=== PATIENT | male | born 1985 | race Caucasian/White ===

== ENCOUNTER 2017-01-18 15:12 | Emergency (ER) | payer MEDICAID, OTHER ==
[2017-01-18 15:24] VITALS: BMI 31.9
[2017-01-18 15:28] VITALS: BP 134/66; PULSE 70; RESP 18; TEMP 97.7; O2SAT 95
--- NOTE | 2017-01-18 15:45 | C.PDOC ---
History Of Present Illness 31 y/o male c/o crusting to left eye and difficulty opening eye from this morning, with watery discharge, with no blurred vision,no eye pain. no fever. does not wear glasses or contact lenses. Time Seen by Provider: 01/18/17 15:28 Chief Complaint (Nursing): ENT Problem Past Medical History Reviewed: Historical Data, Nursing Documentation, Vital Signs Vital Signs: Last Vital Signs Temp 97.7 F 01/18/17 15:23 Pulse 70 01/18/17 15:23 Resp 18 01/18/17 15:23 BP 134/66 01/18/17 15:23 Pulse Ox 95 01/18/17 15:49 - Medical History PMH: Asthma Surgical History: No Surg Hx Family History: States: Unknown Family Hx - Social History Hx Tobacco Use: No Hx Alcohol Use: No Hx Substance Use: No - Immunization History Hx Tetanus Toxoid Vaccination: No Hx Influenza Vaccination: No Hx Pneumococcal Vaccination: No Review Of Systems Constitutional: Negative for: Fever, Chills Eyes: Positive for: Conjunctivae Inflammation, Eyelid Inflammation, Redness. Negative for: Vision Change Respiratory: Negative for: Cough Physical Exam - Physical Exam Appears: Non-toxic, No Acute Distress Skin: Normal Color, Warm, Dry Head: Atraumatic, Normacephalic Eye(s): bilateral: PERRL, EOMI, left: Eyelid Inflammation, Other (diffuse conjunctival injection, no discharge noted) ED Course And Treatment O2 Sat by Pulse Oximetry: 95 Disposition Counseled Patient/Family Regarding: Diagnosis, Need For Followup, Rx Given - Disposition Referrals: [facility] [Outside] [facility] [Outside] Disposition: HOME/ ROUTINE Disposition Time: 15:45 Condition: STABLE Additional Instructions: Do not share towels with anyone. Use 1-2 drops every 4 hours in left eye. Follow up in Medical clinic. Return to ER for any worsening symptoms. Prescriptions: Sulfacetamide Sodium [Bleph-10 5ml] 1 drop OS Q4 #1 bottle Instructions: Conjunctivitis (ED) - Clinical Impression Clinical Impression: Conjunctivitis, left eye
== END 2017-01-18 15:50 | disposition home or self-care (01) ==
LOC: C.ER 15:12
DX: H10.9 Unspecified conjunctivitis (principal)

== ENCOUNTER 2017-10-18 20:53 | Emergency (ER) | payer SELFPAY ==
[2017-10-18 20:53] VITALS: BMI 31.9
[2017-10-18 20:59] VITALS: BP 128/77; PULSE 77; TEMP 98.3; O2SAT 98
[2017-10-18] MEDS ORDERED: cefTRIAXone (Rocephin) 250 mg Inj IM STA (21:06)
--- NOTE | 2017-10-18 21:14 | C.PDOC ---
History Of Present Illness 32yo male presents to ED for evaluation of dysuria with yellow discharge for the past 5 days. Patient states he took OTC Azo with minimal relief. He denies any associated abdominal pain or testicular pain. He has no other complaints. Time Seen by Provider: 10/18/17 21:01 Chief Complaint (Nursing): Male Genitourinary History Per: Patient History/Exam Limitations: no limitations Onset/Duration Of Symptoms: Days (5) Current Symptoms Are (Timing): Still Present Associated Symptoms: Urinary Symptoms (dysuria) Past Medical History Reviewed: Historical Data, Nursing Documentation, Vital Signs Vital Signs: Last Vital Signs Temp 98.3 F 10/18/17 20:57 Pulse 77 10/18/17 20:57 Resp 20 10/18/17 21:42 BP 128/77 10/18/17 20:57 Pulse Ox 98 10/18/17 21:43 - Medical History PMH: Asthma Surgical History: No Surg Hx Family History: States: Unknown Family Hx - Social History Hx Tobacco Use: No Hx Alcohol Use: Yes Hx Substance Use: No - Immunization History Hx Tetanus Toxoid Vaccination: No Hx Influenza Vaccination: No Hx Pneumococcal Vaccination: No Review Of Systems Except As Marked, All Systems Reviewed And Found Negative. Constitutional: Negative for: Fever, Chills Gastrointestinal: Negative for: Abdominal Pain Genitourinary: Positive for: Dysuria, Penile Discharge (yellow). Negative for: Scrotal Pain, Penile Pain Physical Exam - Physical Exam Appears: Non-toxic, No Acute Distress Skin: Normal Color Head: Atraumatic, Normacephalic Eye(s): bilateral: Normal Inspection Neck: Supple Cardiovascular: Rhythm Regular Respiratory: Normal Breath Sounds Gastrointestinal/Abdominal: Bowel Sounds, Soft, No Tenderness Male Genital: No Testicular Swelling, No Inguinal Swelling, No Scrotal Swelling , Circumcised, Other (yellow discharge and erythema to urethra noted. no rashes) Extremity: Bilateral: Atraumatic, Normal ROM Neurological/Psych: Oriented x3, Normal Speech Gait: Steady Additional Physical Exam Comments: Genital exam performed with MERLINE Siegel as combination technician. ED Course And Treatment O2 Sat by Pulse Oximetry: 98 (RA) Pulse Ox Interpretation: Normal Medical Decision Making Medical Decision Making: Impression: Dysuria and yellow penile discharge Plan: -- Chlamydia/GC RNA, TMA -- Zithromax 1000 mg PO -- Rocephin 250 mg IM -- Urine culture -- Urinalysis +nitrates on urine. Patient remained well without fever and no distress. discussed lab result and plan for discharge with oral antibiotics. Explain GC culture was sent and will take few days for result, will call patient with any positive findings. Advise follow up with urologist Disposition Counseled Patient/Family Regarding: Diagnosis, Need For Followup, Rx Given - Disposition Referrals: Jillian Ma MD [Staff Provider] - Disposition: HOME/ ROUTINE Disposition Time: 21:30 Condition: STABLE Additional Instructions: Please follow up with urologist for further evaluation Take antibiotic twice daily Drink plenty of water to flush out infection, can also take cranberry extract Urine and STI cultures were sent to lab and will take 2-3 days for result Prescriptions: Ciprofloxacin HCl [Cipro] 500 mg PO BID #14 tab Instructions: Nonspecific Urethritis in Men (ED), Urinary Tract Infection in Men (ED) Forms: [facility] ??? Connect (Cymro) - POA Present On Arrival: None - Clinical Impression Clinical Impression: Urinary tract infection, Urethritis - PA / TRACK SUBWAY REPAIR SUPERVISOR / Resident Statement MD/DO has reviewed & agrees with the documentation as recorded. - Scribe Statement The provider has reviewed the documentation as recorded by the Katie Ford Provider scribe attestation: All medical record entries made by the Katie were at my direction and personally dictated by me. I have reviewed the chart and agree that the record accurately reflects my personal performance of the history, physical exam, medical decision making, and the department course for this patient. I have also personally directed, reviewed, and agree with the discharge instructions and disposition.
[2017-10-18 21:30] LABS: SQUAMOUS EPITHIAL 1 /hpf (0-5); URINE BACTERIA FEW (<OCC); URINE BILIRUBIN NEGATIVE (NEGATIVE); URINE BLOOD 3+ (NEGATIVE); URINE CLARITY Clear (Clear); URINE COLOR Amber (YELLOW); URINE GLUCOSE (UA) NORMAL (Normal); URINE LEUKOCYTE ESTERASE 3+ Leu/uL (Negative); URINE NITRATE POSITIVE (NEGATIVE); URINE PROTEIN 1+ mg/dL (NEGATIVE)
[2017-10-18 21:43] VITALS: RESP 20
== END 2017-10-18 21:42 | disposition home or self-care (01) ==
LOC: C.ER 20:53
DX: N34.2 Other urethritis (principal)
CPT/HCPCS: 81001; 87086; 87206; 87491; 87591; 96372; 99284; J0696

== ENCOUNTER 2017-11-07 11:09 | Emergency (ER) | payer SELFPAY ==
[2017-11-07 11:09] VITALS: BMI 31.9
--- NOTE | 2017-11-07 11:56 | C.PDOC ---
History Of Present Illness 32 year old male presents to the ED for evaluation of a possible penile obstruction, stating the head of his penis has been swollen since last night. Patient states onset was after sex, states "hole is swollen." Denies hematuria. Patient was seen on 10/18 for UTI and discharged in Cipro. Patient states he followed up with 1-2 weeks ago, was advised to continue Cipro for 1 month. Negative GC 10/18. Patient has been better since taking antibiotics. Denies bladder pain, fullness or other associated symptoms. POSSIBLE PENILE OBSTRUCTION, HEAD OF PENIS SWELLING SINCE LAST NIGHT. ONSET AFTER SEX, STATES "HOLE IS SWOLLEN". NO HEMATURIA. SEEN ON 10/18 FOR UTI, DC ON CIPRO. PS FU W 1-2 WEEKS AGO, WAS ADVISED TO CONTINUE ON CIPRO FOR 1 MONTH. NEG GC 10/18. PS HAS BEEN BETTER SINCE TAKING ABX. DENIES BLADDER PAIN, FULLNESS , OTHER ASSOC SX. EXAM NAD UNCIRCUMSCISED. URETHRAL OPENING CLOSED, UNABLE TO DILATE DURING GLAN MANIUPULATION. NO EDEMA, REDNESS, LESIONS REMAINDER NEG MDM UCX RESULT 10/18 REVIEWED. Time Seen by Provider: 11/07/17 11:53 Chief Complaint (Nursing): Male Genitourinary History Per: Patient History/Exam Limitations: no limitations Onset/Duration Of Symptoms: Hrs Current Symptoms Are (Timing): Still Present Quality Of Discomfort: denies: "Pain" Additional History Per: Patient Past Medical History Reviewed: Historical Data, Nursing Documentation, Vital Signs Vital Signs: Last Vital Signs Temp 97.8 F 11/07/17 13:59 Pulse 66 11/07/17 13:59 Resp 16 11/07/17 13:59 BP 119/73 11/07/17 13:59 Pulse Ox 99 11/07/17 13:59 - Medical History PMH: Asthma Surgical History: No Surg Hx Family History: States: Unknown Family Hx - Social History Hx Tobacco Use: No Hx Alcohol Use: No Hx Substance Use: No - Immunization History Hx Tetanus Toxoid Vaccination: No Hx Influenza Vaccination: No Hx Pneumococcal Vaccination: No Review Of Systems Genitourinary: Positive for: Other (possible penile obstruction, swelling to head of penis. denies bladder pain/fullness ) Physical Exam - Physical Exam Appears: Non-toxic, No Acute Distress Skin: Normal Color, Warm, Dry Male Genital: No Circumcised, Other (urethral opening closed. unable to dilate during glan manipulation. no edema, redness or lesions ) Neurological/Psych: Normal Speech, Normal Cognition ED Course And Treatment O2 Sat by Pulse Oximetry: 99 (on RA) Pulse Ox Interpretation: Normal Progress Note: UA ordered and reviewed. Progress - Re-Evaluation Re-evaluation Note: 11/07/17 12:47 BLADDER SCAN <50 CC PROCEDURE: GC QTIP INSERTED INTO URETHRA WO DIFFICULTY. +SCAN URINE OUTPUT. NO BLEEDING. PT TOLERATED WELL 11/07/17 13:50 +UO WO DIFF, IMPROVED FROM INITIAL. ADVISED NEED FOR ABX CHANGE. FU 11/07/17 13:52 FAX FROM OUTPT UCX DONE ON 10/31 REVIEWED. +SENSITIVE TO BACTRIM PER FAX. - Data Reviewed Data Reviewed: Lab, Old records Medical Decision Making Medical Decision Making: [facility] UCX RESULT 10/18 REVIEWED. Disposition Counseled Patient/Family Regarding: Studies Performed, Diagnosis, Need For Followup, Rx Given - Disposition Referrals: YOUR,UROLOGIST [Other] Disposition: HOME/ ROUTINE Disposition Time: 13:50 Condition: IMPROVED Prescriptions: Sulfamethoxazole/Trimethoprim [Bactrim DS 800 mg-160 mg] 1 tab PO BID #60 tab Instructions: Urinary Tract Infection in Men (ED) Forms: [facility] (Scottish), Work Excuse - Clinical Impression Clinical Impression: Urethral obstruction, Urinary tract infection - Scribe Statement The provider has reviewed the documentation as recorded by the Scribe (Porsche He) Provider Attestation: All medical record entries made by the Scribe were at my direction and personally dictated by me. I have reviewed the chart and agree that the record accurately reflects my personal performance of the history, physical exam, medical decision making, and the department course for this patient. I have also personally directed, reviewed, and agree with the discharge instructions and disposition.
[2017-11-07 13:42] LABS: SQUAMOUS EPITHIAL 2 /hpf (0-5); URINE BACTERIA RARE (<OCC); URINE BILIRUBIN NEGATIVE (NEGATIVE); URINE BLOOD NEGATIVE (NEGATIVE); URINE CLARITY Hazy (Clear); URINE COLOR Yellow (YELLOW); URINE GLUCOSE (UA) NORMAL (Normal); URINE LEUKOCYTE ESTERASE 1+ Leu/uL (Negative); URINE NITRATE NEGATIVE (NEGATIVE); URINE PROTEIN 1+ mg/dL (NEGATIVE)
[2017-11-07 14:00] VITALS: BP 119/73; PULSE 66; RESP 16; TEMP 97.8; O2SAT 99
== END 2017-11-07 13:59 | disposition home or self-care (01) ==
LOC: C.ER 11:09
DX: N36.8 Other specified disorders of urethra (principal); N39.0 Urinary tract infection, site not specified

== ENCOUNTER 2018-09-13 10:31 | Emergency (ER) | payer MEDICAID, OTHER ==
[2018-09-13 10:32] VITALS: BMI 31.9
[2018-09-13 10:40] VITALS: BP 142/76; PULSE 74; RESP 19; TEMP 98.4; O2SAT 97
--- NOTE | 2018-09-13 10:57 | C.PDOC ---
Time Seen by Provider: 09/13/18 10:43 Chief Complaint (Nursing): Male Genitourinary Past Medical History Vital Signs: Last Vital Signs Temp 98.4 F 09/13/18 10:37 Pulse 74 09/13/18 10:37 Resp 19 09/13/18 10:37 BP 142/76 09/13/18 10:37 Pulse Ox 97 09/13/18 10:37 - Medical History PMH: Asthma Family History: States: Unknown Family Hx - Social History Hx Tobacco Use: No Hx Alcohol Use: Yes Hx Substance Use: No - Immunization History Hx Tetanus Toxoid Vaccination: No Hx Influenza Vaccination: No Hx Pneumococcal Vaccination: No ED Course And Treatment O2 Sat by Pulse Oximetry: 97 Disposition - Disposition
[2018-09-13 11:22] LABS: SQUAMOUS EPITHIAL 1 /hpf (0-5); URINE BILIRUBIN NEGATIVE (NEGATIVE); URINE BLOOD 1+ (NEGATIVE); URINE CLARITY Hazy (Clear); URINE COLOR Yellow (YELLOW); URINE GLUCOSE (UA) NORMAL (Normal); URINE LEUKOCYTE ESTERASE 3+ Leu/uL (Negative); URINE PROTEIN NEGATIVE (NEGATIVE); URINE UROBILINOGEN NORMAL mg/dL (0.2-1.0)
[2018-09-13 11:28] LABS: URINE BACTERIA OCC (<OCC)
[2018-09-13] MEDS ORDERED: cefTRIAXone (Rocephin) 250 mg Inj IM STA (12:39)
--- NOTE | 2018-09-13 13:09 | C.PDOC ---
History Of Present Illness 33 y/o male presents to the ED complaining of hematuria and penile discharge for the past 3 days. Patient denies any abdominal pain, contrary to triage. He also denies associated fever, nausea, vomiting, diarrhea, or dysuria. States he has not noticed any penile lesions. Patient does report having unprotected sex, and is concerned for STDs. Time Seen by Provider: 09/13/18 10:43 Chief Complaint (Nursing): Male Genitourinary History Per: Patient History/Exam Limitations: no limitations Onset/Duration Of Symptoms: Days Current Symptoms Are (Timing): Still Present Past Medical History Reviewed: Historical Data, Nursing Documentation, Vital Signs Vital Signs: Last Vital Signs Temp 98.4 F 09/13/18 10:37 Pulse 74 09/13/18 10:37 Resp 19 09/13/18 10:37 BP 142/76 09/13/18 10:37 Pulse Ox 97 09/13/18 12:22 - Medical History PMH: Asthma Family History: States: Unknown Family Hx - Social History Hx Tobacco Use: No Hx Alcohol Use: Yes Hx Substance Use: No - Immunization History Hx Tetanus Toxoid Vaccination: No Hx Influenza Vaccination: No Hx Pneumococcal Vaccination: No Review Of Systems Constitutional: Negative for: Fever, Chills Gastrointestinal: Negative for: Nausea, Vomiting, Abdominal Pain, Diarrhea Genitourinary: Positive for: Hematuria, Penile Discharge. Negative for: Dysuria, Rash Neurological: Negative for: Weakness, Numbness Physical Exam - Physical Exam Appears: Non-toxic, No Acute Distress Skin: Warm, Dry Head: Atraumatic, Normacephalic Eye(s): bilateral: Normal Inspection, PERRL, EOMI Oral Mucosa: Moist Neck: Normal ROM Chest: Symmetrical Cardiovascular: Rhythm Regular, No Murmur Respiratory: Normal Breath Sounds, No Accessory Muscle Use Gastrointestinal/Abdominal: Soft, No Tenderness, No Distention Male Genital: No Testicular Tenderness, No Testicular Swelling, Other (small amount of light yellow discharge from penis, no penile lesions or ulcers) Extremity: Bilateral: Atraumatic, Normal ROM Neurological/Psych: Oriented x3, Normal Speech ED Course And Treatment O2 Sat by Pulse Oximetry: 97 (RA) Pulse Ox Interpretation: Normal Medical Decision Making Medical Decision Making: Impression: Penile discharge, hematuria Plan: --UA --Urine culture --Rocephin 250 mg IM --Zithromax 1000mg PO --GC/chlamydia sent Patient is medically stable for discharge. UA shows UTI, will treat with PO macrobid. Advised to call for GC results and follow up with PMD. Disposition - Disposition Disposition: HOME/ ROUTINE Disposition Time: 13:00 Condition: STABLE Additional Instructions: DOMINGA ANGELO, thank you for letting us take care of you today. Your provider was Louann Verde MD and you were treated for PAIN WHILE URINATING. The emergency medical care you received today was directed at your acute symptoms. If you were prescribed any medication, please fill it and take as directed. It may take several days for your symptoms to resolve. Return to the Emergency Department if your symptoms worsen, do not improve, or if you have any other problems. Please contact your doctor or call one of the physicians/clinics you have been referred to that are listed on the Patient Visit Information form that is included in your discharge packet. Bring any paperwork you were given at discharge with you along with any medications you are taking to your follow up visit. Our treatment cannot replace ongoing medical care by a primary care provider outside of the emergency department. Thank you for allowing the [facility] team to be part of your care today. If you had an X-Ray or CT scan: A Radiologist will review the ED reading if any change in treatment is needed we will contact you. If you had a blood, urine, or wound culture: It will take several days for the results, if any change in treatment is needed we will contact you. If you had an STI test: It will take 48 hours for the results. Please call after 1 week if you have not heard back. Prescriptions: Nitrofurantoin Macrocrystals [Macrobid] 100 mg PO BID #14 cap Instructions: Urinary Tract Infection, Adult (DC), Screening for Sexually Transmitted Infections Forms: [employer] (Wolof) - Clinical Impression Clinical Impression: UTI (urinary tract infection), Concern about STD in male without diagnosis - Scribe Statement The provider has reviewed the documentation as recorded by the Katie Guillermo Provider Attestation: All medical record entries made by the Jeanetteibjennifer were at my direction and personally dictated by me. I have reviewed the chart and agree that the record accurately reflects my personal performance of the history, physical exam, medical decision making, and the department course for this patient. I have also personally directed, reviewed, and agree with the discharge instructions and disposition.
== END 2018-09-13 13:22 | disposition home or self-care (01) ==
LOC: C.ER 10:31
DX: N39.0 Urinary tract infection, site not specified (principal)
CPT/HCPCS: 81001; 87086; 87491; 87591; 96372; 99284; J0696

== ENCOUNTER 2018-10-04 18:24 | Emergency (ER) | payer MEDICAID ==
[2018-10-04 18:25] VITALS: BMI 31.9
[2018-10-04 18:59] VITALS: O2SAT 98
--- NOTE | 2018-10-04 20:29 | C.PDOC ---
History Of Present Illness 33 y/o male presents to the ER complaining of dysuria and hematuria which has been present for the past 2 days. Patient states that he was evalauted in [facility] ER on 09/13/18. At the time, he was diagnosed with GC/Chlamydia and he was treated. He was given prescription for Macrobid based on UA results which he did not fill out.Denies having penile lesions, abdominal pain, fever, and chills. Time Seen by Provider: 10/04/18 19:17 Chief Complaint (Nursing): Male Genitourinary History Per: Patient History/Exam Limitations: no limitations Onset/Duration Of Symptoms: Days Current Symptoms Are (Timing): Still Present Severity: Moderate Past Medical History Reviewed: Historical Data, Nursing Documentation, Vital Signs Vital Signs: Last Vital Signs Temp 98.3 F 10/04/18 18:56 Pulse 68 10/04/18 18:56 Resp 18 10/04/18 18:56 BP 115/68 10/04/18 18:56 Pulse Ox 98 10/04/18 18:56 - Medical History PMH: Asthma Other Surgeries: Hx of surgeries Family History: States: No Known Family Hx - Social History Hx Tobacco Use: No Hx Alcohol Use: Yes Hx Substance Use: No - Immunization History Hx Tetanus Toxoid Vaccination: No Hx Influenza Vaccination: No Hx Pneumococcal Vaccination: No Review Of Systems Except As Marked, All Systems Reviewed And Found Negative. Constitutional: Negative for: Fever, Chills Gastrointestinal: Negative for: Abdominal Pain Genitourinary: Positive for: Dysuria, Hematuria Physical Exam - Physical Exam Appears: Non-toxic, No Acute Distress Skin: Normal Color, Warm, Dry Head: Atraumatic, Normacephalic Eye(s): bilateral: Normal Inspection Nose: Normal Oral Mucosa: Moist Neck: Supple Chest: Symmetrical Cardiovascular: Rhythm Regular Respiratory: Normal Breath Sounds Gastrointestinal/Abdominal: Soft, No Tenderness Male Genital: Other (patient refused) Neurological/Psych: Oriented x3 ED Course And Treatment O2 Sat by Pulse Oximetry: 98 (RA) Pulse Ox Interpretation: Normal Progress Note: UA ordered and reviewed. Patient has been instructed about safe sex practice. Patient has been discharged and instructed to follow up in clinic. Disposition Counseled Patient/Family Regarding: Diagnosis, Need For Followup - Disposition Disposition: HOME/ ROUTINE Disposition Time: 20:29 Condition: STABLE Additional Instructions: Use condoms - Practice safe sex Follow up in clinic'' Return to ER if worse Prescriptions: Ciprofloxacin [Cipro] 1 tab PO BID #14 tab Instructions: Urinary Tract Infections in Adults, Safe Sex (ED) Forms: [employer] (Kiswahili) - Clinical Impression Clinical Impression: Sexually transmitted disease (STD), UTI (urinary tract infection) - PA / TUBE TEST TECHNICIAN / Resident Statement MD/DO has reviewed & agrees with the documentation as recorded. - Scribe Statement The provider has reviewed the documentation as recorded by the Scribe Bret Jules Provider Attestation All medical record entries made by the Jeanetteibjennifer were at my direction and personally dictated by me. I have reviewed the chart and agree that the record accurately reflects my personal performance of the history, physical exam, medical decision making, and the department course for this patient. I have also personally directed, reviewed, and agree with the discharge instructions and disposition.
[2018-10-04 20:37] VITALS: BP 110/60; PULSE 70; RESP 14; TEMP 98
[2018-10-04 20:40] LABS: SQUAMOUS EPITHIAL 2 /hpf (0-5); URINE BACTERIA FEW (<OCC); URINE BILIRUBIN NEGATIVE (NEGATIVE); URINE BLOOD 2+ (NEGATIVE); URINE CLARITY Hazy (Clear); URINE COLOR Yellow (YELLOW); URINE GLUCOSE (UA) NORMAL (Normal); URINE LEUKOCYTE ESTERASE 2+ Leu/uL (Negative); URINE PROTEIN 1+ mg/dL (NEGATIVE); URINE UROBILINOGEN NORMAL mg/dL (0.2-1.0)
== END 2018-10-04 20:37 | disposition home or self-care (01) ==
LOC: C.ER 18:24
DX: N39.0 Urinary tract infection, site not specified (principal); A64 Unspecified sexually transmitted disease

== ENCOUNTER 2019-01-11 20:58 | Emergency (ER) | payer MEDICAID ==
[2019-01-11 20:58] VITALS: BMI 29.6
[2019-01-11 21:04] VITALS: TEMP 97.6
--- NOTE | 2019-01-11 21:14 | C.PDOC ---
History Of Present Illness Patient presents to the ED c/o LUQ abdominal pain that started after eating and smoking marijuana today. Patient states his pain is sharp, stabbing. Patient denies fever, chills, nausea, vomit, diarrhea, dysuria, rash. Time Seen by Provider: 01/11/19 21:14 Chief Complaint (Nursing): Abdominal Pain History Per: Patient History/Exam Limitations: no limitations Onset/Duration Of Symptoms: Hrs Current Symptoms Are (Timing): Still Present Context: Food Location Of Pain/Discomfort: LUQ Radiation Of Pain To:: None Quality Of Discomfort: Sharp, Stabbing Associated Symptoms: denies: Nausea, Vomiting, Diarrhea, Urinary Symptoms Recent travel outside of the [place]: No Additional History Per: Patient Past Medical History Reviewed: Historical Data, Nursing Documentation, Vital Signs Vital Signs: Last Vital Signs Temp 97.6 F 01/11/19 21:01 Pulse 78 01/11/19 21:01 Resp 20 01/11/19 21:01 BP 116/70 01/11/19 21:01 Pulse Ox 100 01/11/19 21:01 - Medical History PMH: Asthma (denies on 10/09/2018), Sexually Transmitted Disease Denies: Chronic Kidney Disease Surgical History: No Surg Hx Family History: States: Unknown Family Hx - Social History Hx Tobacco Use: No Hx Alcohol Use: Yes Hx Substance Use: No - Immunization History Hx Tetanus Toxoid Vaccination: No Hx Influenza Vaccination: No Hx Pneumococcal Vaccination: No Review Of Systems Constitutional: Negative for: Fever, Chills Cardiovascular: Negative for: Chest Pain Gastrointestinal: Positive for: Abdominal Pain. Negative for: Nausea, Vomiting, Diarrhea Genitourinary: Negative for: Dysuria Musculoskeletal: Negative for: Back Pain Skin: Negative for: Rash Neurological: Negative for: Weakness, Numbness Physical Exam - Physical Exam Appears: Non-toxic, No Acute Distress Skin: Warm, Dry, No Rash Head: Normacephalic Eye(s): bilateral: Normal Inspection Oral Mucosa: Moist Neck: Supple Chest: Symmetrical Cardiovascular: Rhythm Regular Respiratory: No Rales, No Rhonchi, No Wheezing Gastrointestinal/Abdominal: Soft, Tenderness (LUQ), No Guarding, No Rebound Back: No CVA Tenderness Extremity: Bilateral: Atraumatic, Normal Color And Temperature, Normal ROM Neurological/Psych: Oriented x3, Normal Speech, Normal Cognition Gait: Steady ED Course And Treatment - Laboratory Results Result Diagrams: 01/11/19 21:46 01/11/19 21:46 ECG: Interpreted By Me, Viewed By Me ECG Rhythm: Sinus Rhythm (65), Nonspecific Changes O2 Sat by Pulse Oximetry: 100 (ON RA) Pulse Ox Interpretation: Normal - Radiology CXR: Interpreted by Me, Viewed By Me CXR Interpretation: No: Infiltrates, Fracture, Pnemothorax - CT Scan/US CT abd/pelvis Other Rad Studies (CT/US): Read By Radiologist, Radiology Report Reviewed CT/US Interpretation: CT SCAN OF THE ABDOMEN AND PELVIS WITHOUT ORAL OR IV CONTRAST. CLINICAL INDICATION: Left flank pain and hematuria. TECHNIQUE: Axial and reformatted sagittal and coronal images of the abdomen pelvis obtained without IV contrast administration. COMPARISON: None. FINDINGS: The visualized lung bases are unremarkable. Normal unenhanced liver. Normal gallbladder and extrahepatic biliary system. Normal unenhanced spleen. Normal pancreas. . Normal bilateral adrenal glands. Normal size of the right kidney. There is no right renal mass. There are no right renal calculi. There is no right hydronephrosis. Normal visualized right ureter. Normal size of the left kidney. There is no left renal mass. There are no left renal calculi. There is no left hydronephrosis. Normal visualized left ureter. Normal visualized stomach. Normal small intestine. Mild changes of central mesenteric panniculitis. Uncomplicated diverticulosis of the colon. The appendix is visualized and appears normal. There is no demonstrated peritoneal fluid. Normal abdominal aorta. Normal inferior vena cava. Normal retroperitoneum. . Normal urinary bladder. There is no pelvic mass lesion or lymphadenopathy. There is no pelvic fluid. Benign chronic prostatic calcifications. . Normal abdominal wall. Normal osseous structures. IMPRESSION: No radiographic evidence of an acute pathology. . Electronically signed on Jan 12, 2019 12:39 :18 AM EDT by: Evonne Mae M.D., Certified by DANILO, MSK, Neuroradiology. Progress Note: Plan: - EKG. - Labs. - CXR. - Protonix 40 mg IVP. - IV fluids. - Toradol 30 mg IVP. - UA Reevaluation Time: 01:22 Reassessment Condition: Improved Medical Decision Making Medical Decision Making: Upon provider reevaluation patient is feeling better, is medically stable, and requires no further treatment in the ED at this time. Patient will be discharged home . Counseling was provided and all questions were answered regarding diagnosis and need for follow up with the referred clinic. There is agreement to discharge plan. Return if symptoms persist or worsen. Disposition Counseled Patient/Family Regarding: Studies Performed, Diagnosis, Need For Followup - Disposition Referrals: [facility] [Outside] Disposition: HOME/ ROUTINE Disposition Time: 21:14 Condition: FAIR Additional Instructions: Please return if symptoms recur Instructions: Acute Abdomen (Belly Pain), Adult (DC), Polysubstance Abuse (DC) Forms: [facility] ([employer]) - Clinical Impression Clinical Impression: Abdominal pain, Polysubstance abuse - Scribe Statement The provider has reviewed the documentation as recorded by the Scribe Vel Sykes All medical record entries made by the Scribe were at my direction and personally dictated by me. I have reviewed the chart and agree that the record accurately reflects my personal performance of the history, physical exam, medical decision making, and the department course for this patient. I have also personally directed, reviewed, and agree with the discharge instructions and disposition.
[2019-01-11] MEDS ORDERED: Sodium Chloride 0.9% 1,000 ML IV ONE (21:17)
[2019-01-11 21:50] LABS: BASO # 0.1 K/uL (0.0-0.2); BASO % 0.9 % (0.0-2.0); EOS # 0.3 K/uL (0.0-0.7); EOS % 2.6 % (0.0-4.0); HEMOGLOBIN 14.5 g/dL (12.0-18.0); LYMPH # 4.3 K/uL (1.0-4.3); LYMPH % 35.8 % (20.0-40.0); MEAN CORPUSCULAR HEMOGLOBIN 30.7 pg (27.0-31.0); MEAN CORPUSCULAR HGB CONC 34.1 g/dL (33.0-37.0); MEAN PLATELET VOLUME 7.5 fL (7.2-11.7); MONO # 0.8 K/uL (0.0-0.8); MONO % 6.7 % (0.0-10.0); NEUT # 6.4 K/uL (1.8-7.0); NRBC % 0.2 % (0.0-2.0); RBC 4.72 Mil/uL (4.40-5.90); WHITE BLOOD COUNT 11.9 K/uL (4.8-10.8)
[2019-01-11 21:56] LABS: SQUAMOUS EPITHIAL < 1 /hpf (0-5); URINE BILIRUBIN NEGATIVE (NEGATIVE); URINE BLOOD NEGATIVE (NEGATIVE); URINE CLARITY Hazy (Clear); URINE COLOR Yellow (YELLOW); URINE GLUCOSE (UA) NORMAL (Normal); URINE LEUKOCYTE ESTERASE 1+ Leu/uL (Negative); URINE PROTEIN NEGATIVE (NEGATIVE)
[2019-01-11 21:57] LABS: INR 1.2
[2019-01-11 22:03] LABS: ALB/GLOB RATIO 1.9 (1.0-2.1); ALBUMIN 4.8 g/dL (3.5-5.0); ALT/SGPT 47 U/L (21-72); AST/SGOT 36 U/L (17-59); BLOOD UREA NITROGEN 19 mg/dL (9-20); CALCIUM 9.6 mg/dl (8.6-10.4); GFR NON-AFRICAN AMERICAN > 60; LIPASE 25 U/L (23-300)
[2019-01-11 22:05] LABS: BARBITURATES, UR NEGATIVE (NEGATIVE); BENZODIAZEPINES, UR NEGATIVE (NEGATIVE); OPIATES, UR NEGATIVE (NEGATIVE)
[2019-01-11 22:07] LABS: PHENCYCLIDINE, UR POSITIVE (NEGATIVE)
[2019-01-12 01:40] VITALS: BP 120/70; PULSE 70; RESP 14; O2SAT 99
--- NOTE | 2019-01-12 08:15 | RAD ---
Chest x-ray single frontal view History: Abdominal pain. Comparison: None available. Findings: Mild venous congestion. Heart size within normal limits. Impression: Mild venous congestion.
--- NOTE | 2019-01-12 17:36 | CT ---
CT abdomen and pelvis HISTORY: Left flank pain. COMPARISON: None available. TECHNIQUE: Multiple contiguous axial images were performed through the abdomen and pelvis without the use of intravenous contrast. Subsequently, sagittal and coronal reformatted images were obtained. This CT exam was performed using one or more of the following dose reduction techniques: Automated exposure control, adjustment of the mA and/or kV according to patient size, and/or use of iterative reconstruction technique. Findings: Lung bases are clear. No pleural or pericardial effusion. Liver and gallbladder are preserved. Splenule. Spleen is preserved. Adrenal glands are preserved. Pancreas is preserved. Distended stomach. Right kidney: No calculi or hydronephrosis. Left Kidney: No calculi or hydronephrosis. Urinary bladder is preserved. Prominent prostate measuring up to 4.1 centimeters with associated internal calcifications. Under distended left hemicolon. Fecal retention in the right hemicolon. Appendix is within normal limits. Shotty lymph nodes seen within the mid abdominal mesentery with associated fat stranding at that level. These findings may represent a mesenteric panniculitis versus sclerosing mesenteritis versus additional etiology. Clinical correlation. Mild degenerative changes in spine. Impression: Shotty lymph nodes seen within the mid abdominal mesentery with associated fat stranding at that level. These findings may represent a mesenteric panniculitis versus sclerosing mesenteritis versus additional etiology. Clinical correlation. Additional findings as above. A preliminary report was generated at 12:39 a.m. on 01/12/[address] Evonne Mae from [facility]. This case was placed in the PA review folder.
--- NOTE | 2019-01-15 15:30 | CARD ---
APPROVED REPORT Date of service: 01/12/2019 EKG Measurement Heart [id number] <Conclusion> Normal sinus rhythm Normal ECG
== END 2019-01-12 01:40 | disposition home or self-care (01) ==
LOC: C.ER 20:58
DX: R10.12 Left upper quadrant pain (principal); F19.10 Other psychoactive substance abuse, uncomplicated
CPT/HCPCS: 71045; 74176; 80053; 80324; 80345; 80346; 80349; 80353; 80358; 80361; 81001; 83690; 83992; 85025; 85610; 85730; 96374; 96375; 99283; C9113; J1885; J7030